=== PATIENT | female | born 1975 | race Caucasian/White ===

== ENCOUNTER 2019-07-13 11:49 | Emergency (ER) | payer MEDICAID, SELFPAY ==
[2019-07-13 11:53] VITALS: BP 127/80; PULSE 108; RESP 18; TEMP 37.3; O2SAT 96
--- NOTE | 2019-07-13 12:09 | PC.NURSE ---
Patient to bathroom on the way to patient room.
--- NOTE | 2019-07-13 12:13 | ED.ABDPAIN ---
HPI - Abdominal Pain General Chief Complaint: Urogenital-Female <Sumit Gonzales PA-C - Last Filed: 07/13/19 14:11> Stated Complaint: possible kidney infection <Sumit Gonzales PA-C - Last Filed: 07/13/19 14:11> Time Seen by Provider: 07/13/19 11:51 <Sumit Gonzales PA-C - Last Filed: 07/13/19 14:11> Source: patient <Sumit Gonzales PA-C - Last Filed: 07/13/19 14:11> Mode of arrival: ambulatory <Sumit Gonzales PA-C - Last Filed: 07/13/19 14:11> Limitations: no limitations <Sumit Gonzales PA-C - Last Filed: 07/13/19 14:11> History of Present Illness HPI narrative: Patient is a 44-year-old female who presents with 2 weeks duration of suprapubic discomfort and urinary frequency and urgency would like to be tested for urinary tract infection. Patient denies vaginal discharge or bleeding but would also like to be tested for STDs. Patient denies any fever chills nausea vomiting URI symptoms or sick contacts pain is an aching pain in the suprapubic region worse with urination does not radiate <Sumit Gonzales PA-C - Last Filed: 07/13/19 14:11> Related Data Allergies/Adverse Reactions: Allergies Allergy/AdvReac Type Severity Reaction Status Date / Time codeine AdvReac Nausea and Verified 07/13/19 12:28 Vomiting <Sumit Gonzales PA-C - Last Filed: 07/13/19 14:11> Review of Systems Review of Systems: All systems reviewed & are unremarkable except as noted in HPI and below <Sumit Gonzales PA-C - Last Filed: 07/13/19 14:11> PMFSH Social History Social History: Social History (Updated 07/13/19 @ 12:14 by Sumit Gonzales PA-C) Smoking status: Current every day smoker Gender identity (if verbalized by the patient): Female <Sumit Gonzales PA-C - Last Filed: 07/13/19 14:11> Exam Narrative: Exam Narrative: GENERAL: Well-appearing, well-nourished, and in no acute distress. HEAD: Normocephalic, atraumatic. EYES: PERRLA and EOMI. ENT: Nares clear, no rhinorrhea or epistaxis. Mucous membranes moist. NECK: Supple. No adenopathy or masses. CHEST: Clear to auscultation. No respiratory distress. No wheezes rales or rhonchi HEART: Regular rate and rhythm. No murmur heard. Normal peripheral pulses. ABDOMEN: Soft, suprapubic tenderness to palpation, nondistended EXTREMITIES: Normal range of motion. No edema. SKIN: Warm, dry, no rash. NEURO: No focal deficits. Alert and oriented x3. PSYCH: Normal mood and affect. <PRITI Urrutia Last Filed: 07/13/19 14:11> Course Course Emergency Course: Patient in the room in no distress aware of case findings treatment plan and diagnosis <Sumit Gonzales PA-C - Last Filed: 07/13/19 14:11> Vital Signs Vital signs: Vital Signs Temperature 99.1 F 07/13/19 11:53 Pulse Rate 108 H 07/13/19 11:53 Respiratory Rate 18 07/13/19 11:53 Blood Pressure 127/80 07/13/19 11:53 Pulse Oximetry 96 07/13/19 11:53 Temperature 98.5 F 07/13/19 14:37 Pulse Rate 92 07/13/19 14:37 Respiratory Rate 20 07/13/19 14:37 Blood Pressure 139/88 07/13/19 14:37 Pulse Oximetry 97 07/13/19 14:37 <Sumit Gonzales PA-C - Last Filed: 07/13/19 14:11> Vital Signs Temperature 99.1 F 07/13/19 11:53 Pulse Rate 108 H 07/13/19 11:53 Respiratory Rate 18 07/13/19 11:53 Blood Pressure 127/80 07/13/19 11:53 Pulse Oximetry 96 07/13/19 11:53 Temperature 98.5 F 07/13/19 14:37 Pulse Rate 92 07/13/19 14:37 Respiratory Rate 20 07/13/19 14:37 Blood Pressure 139/88 07/13/19 14:37 Pulse Oximetry 97 07/13/19 14:37 <Ama Ring MD - Last Filed: 07/13/19 15:29> MDM - Abdominal Pain MDM Narrative Medical decision making narrative: Patient in the room with urinary tract infection was given medications in the emergency department to include antibiotics is afebrile nontoxic-appearing will be treated for urinary tract infection provided with
[2019-07-13] MEDS: metroNIDAZOLE 250 MG TABLET 2000 MG PO (12:35)
[2019-07-13] MEDS: AZITHROMYCIN 250 MG TABLET 1000 MG PO (12:35)
[2019-07-13 12:36] LABS: Basophils Absolute Auto 0.1 K/mm3 (0.0-0.1); Eosinophils Absolute Auto 0.1 K/mm3 (0-0.3); Hematocrit 42.4 % (37.0-47.0); Hemoglobin 13.5 g/dL (12.0-15.0); Immature Granulocyte Absolute 0.05 K/mm3 (0.00-0.031); Immature Granulocyte Percent A 0.5 % (0-0.5); Lymphocytes Absolute Auto 2.13 K/mm3 (0.9-3.2); Lymphocytes Percent Auto 19.9 % (18.3-44.2); Mean Corpuscular HGB Conc 31.8 g/dl (32-36); Mean Corpuscular Hemoglobin 27.4 pg (26-34); Mean Platelet Volume 9.4 fl (7.4-10.4); Monocytes Absolute Auto 0.8 K/mm3 (0.1-0.6); Monocytes Percent Auto 7.3 % (2.6-8.5); Neutrophils Absolute Auto 7.5 K/mm3 (1.3-6.7); Neutrophils Percent Auto 70.3 % (45.5-73.1); Platelet Count Result 360 k/mm3 (150-375); Red Blood Count 4.93 M/mm3 (4.2-5.4); White Blood Count 10.7 K/mm3 (4.5-10.0)
[2019-07-13] MEDS: cefTRIAXone 250 MG VIAL IM (12:36)
[2019-07-13] MEDS: LIDOCAINE HCL 1% LOCAL INJ 20 ML VIAL (12:37)
[2019-07-13 12:40] LABS: Add Urine Microscopic? YES; Appearance Urine Cloudy (Clear); Bacteria Urine 1+ /hpf; Bilirubin Urine Negative (Negative); Blood Urine 1+ (Negative); Color Urine Yellow (Yellow); Glucose Urine UA Negative (Negative); Ketones Urine Negative (Negative); Leukocyte Esterase Ur 2+ LEU/UL (Negative); Mucus Urine Rare /lpf; Nitrate Urine Negative (Negative); Protein Urine 1+ mg/dL (Negative); Specific Grav Ur 1.023 (1.001-1.035); Squamous Epithelial Cell Urine Moderate /hpf (Few); Urobilinogen Urine Negative mg/dL (<2.0); WBC Urine >75 /hpf
[2019-07-13 12:47] LABS: Blood Urea Nitrogen 16 mg/dL (7-17); Calcium 9.3 mg/dL (8.4-10.2); Carbon Dioxide 26 mmol/L (22-30); Chloride 104 mmol/L (98-107); Estimated CRCL calculation 105 ml/min; Estimated Glomerular Filt Rate > 60; Glucose 118 mg/dL (65-105); Potassium 4.2 mmol/L (3.4-5.0); Sodium 135 mmol/L (137-145)
[2019-07-13 14:37] VITALS: BP 139/88; PULSE 92; RESP 20; TEMP 36.9; O2SAT 97
== END 2019-07-13 14:45 | disposition home or self-care (01) ==
PROVIDERS: Emergency Medicine Emergency Medical Services; Emergency Provider Emergency Medicine
DX: N39.0 Urinary tract infection, site not specified (principal); F17.200 Nicotine dependence, unspecified, uncomplicated
CPT/HCPCS: 36415; 80048; 81001; 81025; 85025; 87077; 87086; 87088; 87186; 87491; 87591; 96372; 99284; A9270; J0696